=== PATIENT | female | born 1940 | race Caucasian/White ===

== ENCOUNTER 2017-05-06 14:31 | Outpatient (CLI) | payer MEDICARE, OTHER ==
--- NOTE | 2017-05-06 16:36 | XRAY Report ---
LEFT KNEE, THREE VIEWS: 05/06/2017 Left knee pain. FINDINGS: Soft tissue demonstrates minor vascular calcification in popliteal artery. No knee effusi on is seen. There is a suggestion of minimal narrowing in the patellofemoral joint. There is also s uggestion of subtle chondrocalcinosis along the articular cartilage in the lateral femoral compartmen t. This probably is a result of chondrocalcinosis related to the patient's age. Mild deformity is n oted on the proximal left fibular shaft, most likely a result of a healed old fracture. IMPRESSION: MINIMAL OSTEOARTHRITIS OF THE LEFT KNEE IS NOTED PRIMARILY IN THE PATELLOFEMORAL JOINT. SUGGESTION OF HEALED OLD FRACTURE OF THE PROXIMAL LEFT FIBULAR SHAFT IS NOTED. JOB #: [id number] EXT JOB #:[id number]
== END 2017-05-06 14:32 | disposition home or self-care (01) ==
LOC: DI 14:31
PROVIDERS: ATTEND Physician Assistant
DX: M17.12 Unilateral primary osteoarthritis, left knee (principal)

== ENCOUNTER 2017-06-30 10:24 | Outpatient (CLI) | payer MEDICARE, OTHER ==
--- NOTE | 2017-07-01 15:07 | Mammography Report ---
DIGITAL SCREENING MAMMOGRAM: 06/30/2017 CLINICAL INDICATION: A 77-year-old for screening. COMPARISON: 06/2014, 07/2011, 06/2010, 05/2009, 05/2008, 03/2007 TECHNIQUE: Routine CC and MLO projections were obtained of the breasts. FINDINGS: Scattered fibroglandular tissue is present within the breasts. There are no dominant juani s, suspicious microcalcifications, or secondary signs of malignancy. In comparison to the previous st udies, there are no significant changes. ASSESSMENT: NO MAMMOGRAPHIC EVIDENCE OF MALIGNANCY. NO SIGNIFICANT INTERVAL CHANGES. RECOMMENDATION: Screening mammography is recommended annually. BIRADS category 1 - negative. STANDARD QUALIFYING STATEMENTS 1. This examination was reviewed with the aid of Computed-Aided Detection (CAD). 2. A negative or benign imaging report should not delay biopsy if clinically suspicious findings are present. Consider surgical consultation if warranted. More than 5% of cancers are not identified by i maging. 3. Dense breasts may obscure an underlying neoplasm. JOB #: [id number] EXT JOB #:[id number]
== END 2017-06-30 10:25 | disposition home or self-care (01) ==
LOC: DI 10:24
PROVIDERS: ATTEND Physician Assistant
DX: Z12.31 Encounter for screening mammogram for malignant neoplasm of breast (principal)
CPT/HCPCS: 77067

== ENCOUNTER 2018-03-29 16:30 | Emergency (ER) | payer MEDICARE, OTHER ==
[2018-03-29 16:43] VITALS: BP 145/80
[2018-03-29] MEDS ORDERED: AMOX/CLAV 875 MG/125 MG TABLET PO STA (16:48)
[2018-03-29] MEDS ORDERED: TETANUS/DIPHTHERIA/PERTUSSIS 0.5 ML SYRINGE IM ONE (16:48)
--- NOTE | 2018-03-29 16:51 | ED Physician Documentation ---
PD HPI UPPER EXT INJURY - Stated complaint Stated Complaint: R HAND BITE - Chief complaint Chief Complaint: Laceration - History obtained from History obtained from: Patient - History of Present Illness Location: Other (Right-handed woman who is not up-to-date on tetanus has been caring for her neighbor's dog and she took a toy away from it and it bit her on the dorsum of the right hand. No other injuries. 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 HEENT: Tonsil/Adenoidectomy - Present Medications Home Medications: Ambulatory Orders Medication Instructions Recorded Confirmed Aspirin 325 mg PO DAILY 05/13/13 04/23/16 Zolpidem [Ambien] 10 mg PO HS 05/13/13 04/26/16 Diltiazem HCl [Diltiazem 24Hr Cd] 240 mg PO DAILY #30 cap.er.24h 04/08/16 Pantoprazole Sodium [Protonix] 40 mg PO DAILY 04/08/16 04/26/16 Potassium Chloride [Klor-Con M20] 20 meq PO DAILY 04/08/16 04/26/16 - Allergies Allergies/Adverse Reactions: Allergies Allergy/AdvReac Type Severity Reaction Status Date / Time Sulfa (Sulfonamide Allergy Rash Verified 03/29/18 16:42 Antibiotics) - Social History Does the pt smoke?: No Smoking Status: Never smoker Does the pt drink ETOH?: No Does the pt have substance abuse?: No - Immunizations Immunizations are current?: Yes - POLST Patient has POLST: No PD ED PE NORMAL - Vitals Vital signs reviewed: Yes - General General: Alert and oriented X 3, No acute distress - Extremities Extremities: Other (On the dorsum of the right hand at the level of the proximal third metacarpal there is a shallow skin tear which was irrigated during exam and then tacked down with Mepitel. There is no underlying tenderness.) - Neuro Neuro: Alert and oriented X 3, Normal speech Results - Vitals Vitals: Vital Signs - 24 hr 03/29/18 16:32 Temperature 36.4 C L Heart Rate 91 Respiratory 18 Rate Blood Pressure 145/80 H O2 Saturation 98 Oxygen O2 Source Room air Departure - Departure Disposition: 01 Home, Self Care Clinical Impression: Dog bite of right hand Qualifiers: Encounter type: initial encounter Qualified Code(s): S61.451A - Open bite of right hand, initial encounter Condition: Good Record reviewed to determine appropriate education?: Yes Instructions: ED Bite Dog Comments: Your blood pressure was elevated today on check into the emergency department. This does not mean that you have hypertension, it is a common phenomenon to come to the emergency department and have elevated blood pressure. I recommend that you see your primary care physician within the week to have it rechecked when you are feeling better. Discharge Date/Time: 03/29/18 16:58
== END 2018-03-29 16:58 | disposition home or self-care (01) ==
LOC: ED 16:30
DX: S61.451A Open bite of right hand, initial encounter (principal); W54.0XXA Bitten by dog, initial encounter; I10 Essential (primary) hypertension; I48.91 Unspecified atrial fibrillation; Z79.82 Long term (current) use of aspirin; E03.9 Hypothyroidism, unspecified
CPT/HCPCS: 90471; 90715; 99283; A9270

== ENCOUNTER 2018-05-27 07:31 | Emergency (ER) | payer MEDICARE, OTHER ==
--- NOTE | 2018-05-27 07:41 | ED Physician Documentation ---
PD HPI FEMALE - Stated complaint Stated Complaint: FEMALE - Chief complaint Chief Complaint: UTI - History obtained from History obtained from: Patient - History of Present Illness Timing - onset: Yesterday Timing - duration: Days (2nd day) Timing - details: Gradual onset, Still present Associated symptoms: Dysuria, Urinary frequency. No: Fever, Abdominal pain, Vaginal pain, Vaginal discharge, Genital sore/lesion Contributing factors: Not sexually active. No: Exposed to STD Similar symptoms before: Diagnosis (similar to UTIs in the past.) Review of Systems Constitutional: denies: Fever, Chills Nose: denies: Rhinorrhea / runny nose, Congestion Throat: denies: Sore throat Respiratory: denies: Cough GI: denies: Abdominal Pain, Nausea, Vomiting, Diarrhea Skin: denies: Rash Musculoskeletal: denies: Back pain PD PAST MEDICAL HISTORY - Past Medical History Cardiovascular: Hypertension, Atrial fibrillation Respiratory: None Endocrine/Autoimmune: HyPOthyroidism GI: GI bleed, Ulcers, Hiatal hernia : None HEENT: None Psych: Depression Musculoskeletal: Osteoarthritis Derm: None - Past Surgical History Past Surgical History: Yes Ortho: Hip replacement, 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 HEENT: Tonsil/Adenoidectomy - Present Medications Home Medications: Ambulatory Orders Medication Instructions Recorded Confirmed Aspirin 325 mg PO DAILY 05/13/13 04/23/16 Zolpidem [Ambien] 10 mg PO HS 05/13/13 04/26/16 Diltiazem HCl [Diltiazem 24Hr Cd] 240 mg PO DAILY #30 cap.er.24h 04/08/16 Pantoprazole Sodium [Protonix] 40 mg PO DAILY 04/08/16 04/26/16 Potassium Chloride [Klor-Con M20] 20 meq PO DAILY 04/08/16 04/26/16 Nitrofurantoin Monohyd/M-Cryst 100 mg PO BID #14 capsule 05/27/18 [Macrobid 100 mg Capsule] - Allergies Allergies/Adverse Reactions: Allergies Allergy/AdvReac Type Severity Reaction Status Date / Time Sulfa (Sulfonamide Allergy Rash Verified 03/29/18 16:42 Antibiotics) - Social History Does the pt smoke?: No Smoking Status: Never smoker Does the pt drink ETOH?: No Does the pt have substance abuse?: No - Immunizations Immunizations are current?: Yes - POLST Patient has POLST: No PD ED PE NORMAL - Vitals Vital signs reviewed: Yes - General General: Alert and oriented X 3, No acute distress, Well developed/nourished - Abdomen Abdomen: Soft, Non tender - Female Female : Deferred - Back Back: No CVA TTP - Derm Derm: Normal color, Warm and dry, No rash - Extremities Extremities: Normal ROM s pain - Neuro Neuro: Alert and oriented X 3, No motor deficit, Normal speech Results - Vitals Vitals: Vital Signs - 24 hr 05/27/18 05/27/18 07:37 08:46 Heart Rate 60 86 Respiratory 14 18 Rate Blood Pressure 138/72 H 135/68 H O2 Saturation 97 100 Oxygen O2 Source Room air - Labs Labs: Laboratory Tests 05/27/18 07:40 Urine Color LIGHT YELLOW Urine Clarity CLEAR Urine pH 6.5 Ur Specific [place] <=1.005 Urine Protein NEGATIVE Urine Glucose (UA) NEGATIVE Urine Ketones NEGATIVE Urine Occult Blood NEGATIVE Urine Nitrite NEGATIVE Urine Bilirubin NEGATIVE Urine Urobilinogen 0.2 (NORMAL) Ur Leukocyte Esterase NEGATIVE Ur Microscopic Review NOT INDICATED Urine Culture Comments NOT INDICATED PD MEDICAL DECISION MAKING - ED course Complexity details: reviewed results, considered differential (early dysuria symptoms. UA pretty normal though. I think vaginitis would be uncommon in age group. Discussed with her empiric treatment versus pelvic exam/other testing, and shared decision to try abx with idea that if not improved, would need to look for other causes. ), d/w patient - Sepsis Event Vital Signs: Vital Signs - 24 hr 05/27/18 05/27/18 07:37 08:46 Heart Rate 60 86 Respiratory 14 18 Rate Blood Pressure 138/72 H 135/68 H O2 Saturation 97 100 Oxygen O2 Source Room air Departure - Departure Disposition: 01 Home, Self Care Clinical Impression: Dysuria Condition: Stable Record reviewed to determine appropriate education?: Yes Instructions: ED Dysuria Uncertain Cause Follow-Up: Antony Gama MD [Primary Care Provider] - Prescriptions: Nitrofurantoin Monohyd/M-Cryst [Macrobid 100 mg Capsule] 100 mg PO BID #14 capsule Comments: Your urine test does not look like a bladder infection, though it is not accurate enough to excluded a bladder infection. Your symptoms are suggestive of urinary tract infection. Will treat it that way but be wary of being sure that you get better. If you are not better over the next several days, follow- up with your primary care for alternative reasons. Discharge Date/Time: 05/27/18 08:45
[2018-05-27 07:48] LABS: BILIRUBIN,URINE NEGATIVE (NEGATIVE); GLUCOSE, URINE (UA) NEGATIVE (NEGATIVE); KETONES,URINE (UA) NEGATIVE (NEGATIVE); LEUKOCYTE ESTERASE, URINE NEGATIVE (NEGATIVE); NITRITE,URINE NEGATIVE (NEGATIVE); OCCULT BLOOD,URINE NEGATIVE (NEGATIVE); PH,URINE 6.5 PH (5.0-7.5); PROTEIN,URINE NEGATIVE (NEGATIVE); UROBILINOGEN,URINE 0.2 (NORMAL) E.U./dL (NORMAL)
[2018-05-27 07:51] LABS: CLARITY,URINE CLEAR (CLEAR)
[2018-05-27] MEDS ORDERED: NITROFURANTOIN MACRO 100 MG CAPSULE PO STA (08:24)
[2018-05-27 08:46] VITALS: BP 135/68
== END 2018-05-27 08:45 | disposition home or self-care (01) ==
LOC: ED 07:31
DX: R30.0 Dysuria (principal)
CPT/HCPCS: 81003; 99283; A9270; 81001; 87086

== ENCOUNTER 2019-09-21 09:17 | Emergency (ER) | payer MEDICARE, OTHER ==
[2019-09-21 09:56] LABS: BASOPHILS # (AUTO) 0.1 10^3/uL (0.0-0.1); BASOPHILS % (AUTO) 0.8 %; EOSINOPHILS # (AUTO) 0.1 10^3/uL (0.0-0.7); HGB - HEMOGLOBIN 13.8 g/dL (12.0-16.0); LYMPHOCYTES # (AUTO) 1.4 10^3/uL (1.5-3.5); LYMPHOCYTES % (AUTO) 23.2 %; MEAN CORPUSCULAR HEMOGLOBIN 33.2 pg (27.0-31.0); MEAN CORPUSCULAR HGB CONC 33.7 g/dL (32.0-36.0); MEAN CORPUSCULAR VOLUME 98.3 fL (81.0-99.0); MEAN PLATELET VOLUME 9.3 fL (7.9-10.8); MONOCYTES # (AUTO) 0.7 10^3/uL (0.0-1.0); MONOCYTES % (AUTO) 10.5 %; NEUTROPHILS % (AUTO) 63.9 %; PLT - PLATELET COUNT 240 10^3/uL (130-450); RED BLOOD COUNT 4.16 10^6/uL (4.20-5.40); RED CELL DISTRIBUTION WIDTH 13.2 % (12.0-15.0); WHITE BLOOD COUNT 6.2 x10^3/uL (4.8-10.8)
--- NOTE | 2019-09-21 10:01 | ED Physician Documentation ---
PD HPI NVD - Stated complaint Stated Complaint: DIARRHEA - Chief complaint Chief Complaint: Abd Pain - History obtained from History obtained from: Patient, Family - History of Present Illness Timing - onset: How many days ago (3) Timing - duration: Days (3) Timing - details: Still present Pain level now: 0 Associated symptoms: Melena. No: Fever, Abdominal pain, Hematemesis, Dizzy, Near syncope / syncope, Dysuria, Hematuria Contributing factors: No: Sick contact, Bad food Similar symptoms before: Diagnosis (Has a history of a bleeding ulcer) Recently seen: Not recently seen - Additonal information Additional information: This is a 79-year-old woman who presents with her complains that she is having diarrhea in the stool is completely black. They are concerned because she had this happen a few years ago and was diagnosed with bleeding peptic ulcer. She says that this is been happening for a couple of days in her stool which is very loose. She has no pain. She is on Xarelto for A. fib. She has not felt dizzy. No shortness of breath or palpitations. She has no history of anemia. She is urinating okay. Review of Systems Constitutional: denies: Fever Ears: denies: Ear pain Nose: denies: Congestion Throat: denies: Sore throat Cardiac: denies: Chest pain / pressure, Palpitations Respiratory: denies: Dyspnea GI: reports: Diarrhea. 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 HEENT: Tonsil/Adenoidectomy - Present Medications Home Medications: Ambulatory Orders Medication Instructions Recorded Confirmed Diltiazem HCl [Diltiazem 24Hr Cd] 240 mg PO DAILY #30 cap.er.24h 04/08/16 09/21/19 Diphenoxylate/Atropine [Lomotil] 1 each PO QID #8 tablet 09/21/19 Donepezil HCl 10 mg PO DAILY 09/21/19 09/21/19 Levothyroxine [Synthroid] 75 mcg PO DAILY 09/21/19 09/21/19 Memantine [Namenda] 5 mg PO DAILY 09/21/19 09/21/19 Rivaroxaban [Xarelto] 10 mg PO DAILY 09/21/19 09/21/19 - Allergies Allergies/Adverse Reactions: Allergies Allergy/AdvReac Type Severity Reaction Status Date / Time Sulfa (Sulfonamide Allergy Rash Verified 09/21/19 09:26 Antibiotics) - Social History Does the pt smoke?: No Smoking Status: Never smoker Does the pt drink ETOH?: No Does the pt have substance abuse?: No - Immunizations Immunizations are current?: Yes - POLST Patient has POLST: No PD ED PE NORMAL - Vitals Vital signs reviewed: Yes - General General: Alert and oriented X 3, No acute distress, Well developed/nourished - HEENT HEENT: Atraumatic, PERRL, EOMI, Moist mucous membranes - Neck Neck: Supple, no meningeal sign, No adenopathy, Thyroid normal, No JVD - Cardiac Cardiac: RRR, No murmur, Strong equal pulses - Respiratory Respiratory: No respiratory distress, Clear bilaterally - Abdomen Abdomen: Normal bowel sounds, Soft, Non tender, Non distended, No organomegaly, Other (Smear of black appearing stool was heme negative.) - Derm Derm: Normal color, No rash - Extremities Extremities: No edema - Neuro Neuro: Alert and oriented X 3, No motor deficit, No sensory deficit, Normal speech - Psych Psych: Normal mood, Normal affect Results - Vitals Vitals: Vital Signs - 24 hr 09/21/19 09/21/19 09:26 10:48 Temperature 36.4 C L Heart Rate 76 75 Respiratory 18 18 Rate Blood Pressure 155/72 H 151/67 H O2 Saturation 100 100 Oxygen O2 Source Room air - Labs Labs: Laboratory Tests 09/21/19 09/21/19 09/21/19 09:48 09:48 10:45 WBC 6.2 RBC 4.16 L Hgb 13.8 Hct 40.9 MCV 98.3 MCH 33.2 H MCHC 33.7 RDW 13.2 Plt Count 240 MPV 9.3 Neut # (Auto) 4.0 Lymph # (Auto) 1.4 L [place] # (Auto) 0.7 Eos # (Auto) 0.1 Baso # (Auto) 0.1 Absolute Nucleated RBC 0.00 Nucleated RBC % 0.0 Sodium 140 Potassium 3.5 Chloride 105 Carbon Dioxide 23 Anion Gap 12.0 BUN 28 H Creatinine 0.9 Estimated GFR (MDRD) 61 L Glucose 124 H Calcium 9.0 Total Bilirubin 0.6 AST 21 ALT 17 Alkaline Phosphatase 58 Total Protein 6.5 L Albumin 3.6 Globulin 2.9 Albumin/Globulin Ratio 1.2 Lipase 48 Urine Color YELLOW Urine Clarity CLEAR Urine pH 6.0 Ur Specific [place] 1.025 Urine Protein NEGATIVE Urine Glucose (UA) NEGATIVE Urine Ketones NEGATIVE Urine Occult Blood NEGATIVE Urine Nitrite NEGATIVE Urine Bilirubin NEGATIVE Urine Urobilinogen 0.2 (NORMAL) Ur Leukocyte Esterase NEGATIVE Ur Microscopic Review NOT INDICATED Urine Culture Comments NOT INDICATED PD MEDICAL DECISION MAKING - ED course Complexity details: reviewed results, d/w patient, d/w family ED course: Patient's hemoglobin is normal. The stool was heme-negative although it did have a black appearance. Currently she has taken some Pepto-Bismol at home and attempt to stop the diarrhea. At this time there is no indication of GI bleeding and I think she can be discharged home with precautions to continue to monitor this. Avoid the use of the Pepto-Bismol. Brat diet. Follow-up if she develops pain, fever dizziness or passes out. Departure - Departure Disposition: 01 Home, Self Care Clinical Impression: Diarrhea Qualifiers: Diarrhea type: unspecified type Qualified Code(s): R19.7 - Diarrhea, unspecified Condition: Good Instructions: ED Diet Brat Expanded Ch, ED Diarrhea Viral Follow-Up: Antony Gama MD [Primary Care Provider] - Prescriptions: Diphenoxylate/Atropine [Lomotil] 1 each PO QID #8 tablet Comments: Try the brat diet to help firm up your stools: bananas, rice, applesauce and toast. May take Lomotil if the diarrhea persists for another 48 hours. Return to the emergency department if you have abdominal pain, fever, bright red blood in the stool or are vomiting and cannot keep anything down.
[2019-09-21 10:10] LABS: ALBUMIN 3.6 g/dL (3.2-5.5); ALBUMIN/GLOBULIN RATIO 1.2 (1.0-2.2); BILIRUBIN,TOTAL 0.6 mg/dL (0.2-1.0); CREATININE 0.9 mg/dL (0.4-1.0); TOTAL PROTEIN 6.5 g/dL (6.7-8.2)
[2019-09-21 10:48] VITALS: BP 151/67
[2019-09-21 11:07] LABS: BILIRUBIN,URINE NEGATIVE (NEGATIVE); CLARITY,URINE CLEAR (CLEAR); GLUCOSE, URINE (UA) NEGATIVE (NEGATIVE); KETONES,URINE (UA) NEGATIVE (NEGATIVE); LEUKOCYTE ESTERASE, URINE NEGATIVE (NEGATIVE); NITRITE,URINE NEGATIVE (NEGATIVE); OCCULT BLOOD,URINE NEGATIVE (NEGATIVE); PROTEIN,URINE NEGATIVE (NEGATIVE); UROBILINOGEN,URINE 0.2 (NORMAL) E.U./dL (NORMAL)
== END 2019-09-21 12:31 | disposition home or self-care (01) ==
LOC: ED 09:17
DX: R19.7 Diarrhea, unspecified (principal); R19.5 Other fecal abnormalities; Z87.11 Personal history of peptic ulcer disease; I48.91 Unspecified atrial fibrillation; Z79.01 Long term (current) use of anticoagulants; I10 Essential (primary) hypertension
CPT/HCPCS: 36415; 80053; 81001; 81003; 83690; 85025; 87086; 99283; 99284

== ENCOUNTER 2020-08-01 08:01 | Emergency (ER) | payer MEDICARE, OTHER ==
[2020-08-01] MEDS ORDERED: SODIUM CHLORIDE 0.9% 1,000 ML IV STA (08:14)
[2020-08-01 08:26] LABS: BASOPHILS # (AUTO) 0.1 10^3/uL (0.0-0.1); BASOPHILS % (AUTO) 0.8 %; EOSINOPHILS # (AUTO) 0.1 10^3/uL (0.0-0.7); EOSINOPHILS % (AUTO) 1.3 %; HGB - HEMOGLOBIN 14.9 g/dL (12.0-16.0); LYMPHOCYTES # (AUTO) 2.1 10^3/uL (1.5-3.5); LYMPHOCYTES % (AUTO) 33.9 %; MEAN CORPUSCULAR HEMOGLOBIN 33.1 pg (27.0-31.0); MEAN CORPUSCULAR HGB CONC 34.3 g/dL (32.0-36.0); MEAN CORPUSCULAR VOLUME 96.7 fL (81.0-99.0); MEAN PLATELET VOLUME 9.5 fL (7.9-10.8); MONOCYTES # (AUTO) 0.7 10^3/uL (0.0-1.0); MONOCYTES % (AUTO) 10.7 %; NEUTROPHILS # (AUTO) 3.3 10^3/uL (1.5-6.6); PLT - PLATELET COUNT 247 10^3/uL (130-450); RED CELL DISTRIBUTION WIDTH 12.5 % (12.0-15.0); WHITE BLOOD COUNT 6.3 x10^3/uL (4.8-10.8)
[2020-08-01 08:40] LABS: ALBUMIN/GLOBULIN RATIO 1.1 (1.0-2.2); BILIRUBIN,TOTAL 0.8 mg/dL (0.2-1.0); CALCIUM 9.3 mg/dL (8.5-10.3); CREATININE 0.8 mg/dL (0.4-1.0); TOTAL PROTEIN 7.5 g/dL (6.7-8.2)
--- NOTE | 2020-08-01 09:11 | ED Physician Documentation ---
History of Present Illness - Stated complaint Stated Complaint: RHR - Chief complaint Chief Complaint: Cardiac - History obtained from History obtained from: Patient, Family - Additonal information Additional information: Complaining of feeling as though her highest heart was racing earlier this morning. The patient states that she is feeling much better now. No chest pain or shortness of breath. The patient has a history of dementia and is not able to offer all information herself, so some information is offered by . He states the patient was diagnosed with A. fib sometime ago and has an implantable "chip" that monitors her rate and rhythm. He states that he is not sure what her rate was this morning, and he did not notice any unusual behavior in the patient. Patient has not taken her medications yet this morning, including her Cardizem, metoprolol, and anticoagulant. Review of Systems Ten Systems: 10 systems reviewed and negative Constitutional: reports: Reviewed and negative Eyes: reports: Reviewed and negative Ears: reports: Reviewed and negative Nose: reports: Reviewed and negative Throat: reports: Reviewed and negative Cardiac: reports: Palpitations. denies: Chest pain / pressure Respiratory: reports: Reviewed and negative GI: denies: Nausea, Vomiting : reports: Reviewed and negative Skin: reports: Reviewed and negative Musculoskeletal: reports: Reviewed and negative Neurologic: reports: Reviewed and negative Psychiatric: reports: Reviewed and negative Endocrine: reports: Reviewed and negative Immunocompromised: reports: Reviewed and negative PD PAST MEDICAL HISTORY - Past Medical History Cardiovascular: Hypertension, Atrial fibrillation Respiratory: None Endocrine/Autoimmune: HyPOthyroidism GI: GI bleed, Ulcers, Hiatal hernia : None HEENT: None Psych: Depression Musculoskeletal: Osteoarthritis Derm: None - Past Surgical History Past Surgical History: Yes Ortho: Hip replacement, 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 HEENT: Tonsil/Adenoidectomy - Present Medications Home Medications: Ambulatory Orders Medication Instructions Recorded Confirmed Diltiazem HCl [Diltiazem 24Hr Cd] 240 mg PO DAILY #30 cap.er.24h 04/08/16 09/21/19 Diphenoxylate/Atropine [Lomotil] 1 each PO QID #8 tablet 09/21/19 Donepezil HCl 10 mg PO DAILY 09/21/19 09/21/19 Levothyroxine [Synthroid] 75 mcg PO DAILY 09/21/19 09/21/19 Memantine [Namenda] 5 mg PO DAILY 09/21/19 09/21/19 Rivaroxaban [Xarelto] 10 mg PO DAILY 09/21/19 09/21/19 - Allergies Allergies/Adverse Reactions: Allergies Allergy/AdvReac Type Severity Reaction Status Date / Time Sulfa (Sulfonamide Allergy Rash Verified 08/01/20 08:12 Antibiotics) - Social History Does the pt smoke?: No Smoking Status: Never smoker Does the pt drink ETOH?: No Does the pt have substance abuse?: No - Immunizations Immunizations are current?: Yes - POLST Patient has POLST: No PD ED PE NORMAL - Vitals Vital signs reviewed: Yes - General General: Alert and oriented X 3, No acute distress - HEENT HEENT: Atraumatic, PERRL, EOMI, Moist mucous membranes - Neck Neck: Supple, no meningeal sign - Cardiac Cardiac: RRR, No murmur - Respiratory Respiratory: No respiratory distress, Clear bilaterally - Abdomen Abdomen: Soft, Non tender, Non distended - Derm Derm: Normal color, Warm and dry, No rash - Extremities Extremities: No deformity, No edema, No calf tenderness / cord - Neuro Neuro: Other (Alert, no gross deficits) - Psych Psych: Normal mood, Normal affect Results - Vitals Vitals: Oxygen O2 Source Room air - EKG (time done) 0816 Rate: Rate (enter#) (91) Rhythm: Atrial fibrillation [place]: Normal Intervals: Normal [place] QRS: Normal Ischemia: ST depression (minimal, lateral leads) Compare to prior EKG: Old EKG unavailable Computer interpretation: Agree with computer - Labs Labs: Laboratory Tests 08/01/20 08/01/20 08:20 08:20 WBC 6.3 RBC 4.50 Hgb 14.9 Hct 43.5 MCV 96.7 MCH 33.1 H MCHC 34.3 RDW 12.5 Plt Count 247 MPV 9.5 Neut # (Auto) 3.3 Lymph # (Auto) 2.1 [place] # (Auto) 0.7 Eos # (Auto) 0.1 Baso # (Auto) 0.1 Absolute Nucleated RBC 0.00 Nucleated RBC % 0.0 Sodium 141 Potassium 3.8 Chloride 107 Carbon Dioxide 26 Anion Gap 8.0 BUN 20 Creatinine 0.8 Estimated GFR (MDRD) 69 L Glucose 103 H Calcium 9.3 Total Bilirubin 0.8 AST 21 ALT 13 Alkaline Phosphatase 72 Total Protein 7.5 Albumin 4.0 Globulin 3.5 Albumin/Globulin Ratio 1.1 Lipase 38 PD MEDICAL DECISION MAKING - ED course Complexity details: reviewed old records, reviewed results, re-evaluated patient, considered differential, d/w patient, d/w family ED course: The patient was asymptomatic upon arrival in the emergency department. She was worked up with labs and EKG which were unremarkable. I suspect that the patient had most likely had a brief elevation heart rate, due to her A. fib, this morning. We have discussed that she should take her medications when she gets home, she has not had them yet today. If the patient continues to have these sorts of episodes, her ICD/event monitor will need to be interrogated. and patient expressed understanding. We discussed the usual indications for return. Departure - Departure Disposition: 01 , Self Care Clinical Impression: Atrial fibrillation Qualifiers: Atrial fibrillation type: unspecified Qualified Code(s): I48.91 - Unspecified atrial fibrillation Condition: Stable Instructions: ED Afib Comments: Your heart rate has been normal throughout most of your stay here in the emergency department. You have not had a dangerously heart high heart rate at any time. Your labs and EKG look good, other than showing A. fib. Please take your medications as soon as you get home. If you have further episodes where he feels that your heart is racing, please ask your doctor to review your tracings to see how high your heart rate is getting. If you have an episode that does not go away on its own, or if you develop chest pain and shortness of breath, please return to the emergency department. Discharge Date/Time: 08/01/20 09:41
[2020-08-01 09:41] VITALS: BP 155/70
== END 2020-08-01 09:41 | disposition home or self-care (01) ==
LOC: ED 08:01
DX: I48.91 Unspecified atrial fibrillation (principal); Z79.01 Long term (current) use of anticoagulants; I10 Essential (primary) hypertension; F03.90 Unspecified dementia, unspecified severity, without behavioral disturbance, psychotic disturbance, mood disturbance, and anxiety
CPT/HCPCS: 36415; 80053; 83690; 85025; 93005; 96360; 99283